=== PATIENT | female | born 1960 | race Caucasian/White ===

== ENCOUNTER 2021-02-28 16:18 | Outpatient (REF) | payer BC, SELFPAY ==
--- NOTE | ~2021-02-28 | XR_ITS ---
EXAMINATION: XR KNEE, LEFT CLINICAL INFORMATION: Left knee pain COMPARISON: None TECHNIQUE: Four views of the left knee. FINDINGS: There is no evidence of acute fracture or dislocation of the left knee. No significant knee effusion is seen. There is mild narrowing of the medial joint space compartment. Patella spurs at insertion of the quadriceps tendon is noted. XR/XR knee LT 4V IMPRESSION: There is no evidence of acute fracture, dislocation, or effusion of the left knee. Mild medial joint space degenerative narrowing.
== END 2021-02-28 16:19 | disposition home or self-care (01) ==
LOC: HO.HMGCX 16:18
PROVIDERS: PCP Internal Medicine; Visit Provider Physician Assistant Medical
DX: M25.562 Pain in left knee (principal)
CPT/HCPCS: 73564

== ENCOUNTER 2021-03-04 08:59 | Outpatient (REF) | payer BC, SELFPAY ==
--- NOTE | ~2021-03-04 | US_ITS ---
EXAMINATION: US VENOUS ULTRASOUND WITH DOPPLER LOWER EXTREMITY, LEFT CLINICAL INFORMATION: Left knee pain. COMPARISON: None TECHNIQUE: Ultrasound of the deep veins is performed from the hip to the calf with compression sonography and color and pulse Doppler assessment. Spectral analysis with color-flow imaging is performed. FINDINGS: There is normal venous compression and respiratory variation and augmented flow. The visualized common femoral vein, superficial femoral vein, profunda femoral vein, popliteal vein, and the trifurcation region shows no evidence of deep venous thrombosis. And anechoic fluid collection medial to the left knee measures approximately 5.1 x 1.5 x 4.6 cm. Doppler showed no associated vascular flow. If the patient's symptoms persist, followup ultrasound in 5 days 7 days might be of value to exclude proximal propagation from a non-visualized calf vein. US/US venous duplex LE LT IMPRESSION: 1. No evidence for deep venous thrombosis in the visualized veins of the left lower extremity. 2. Left medial popliteal cyst.
== END 2021-03-04 09:00 | disposition home or self-care (01) ==
LOC: HO.HMGCX 08:59
PROVIDERS: Visit Provider Physician Assistant Medical
DX: M25.562 Pain in left knee (principal)
CPT/HCPCS: 93971

== ENCOUNTER 2021-04-02 07:29 | Outpatient (REF) | payer BC, SELFPAY ==
--- NOTE | ~2021-04-02 | XR_ITS ---
EXAMINATION: X-RAY KNEE, LEFT CLINICAL INFORMATION: Left knee pain COMPARISON: Radiographs of the left knee 02/28/2021 TECHNIQUE: Single sunrise view of the left knee FINDINGS: There is mild patellofemoral joint space narrowing with osteophyte formation at the medial compartment. No acute fracture or dislocation. Overlying soft tissues are intact. XR/XR knee LT 1V IMPRESSION: Mild degenerative changes of the patellofemoral joint, on this single sunrise view of the left knee.
== END 2021-04-02 07:30 | disposition home or self-care (01) ==
LOC: HO.HOSX 07:29
PROVIDERS: Visit Provider Physician Assistant
DX: M17.12 Unilateral primary osteoarthritis, left knee (principal)
CPT/HCPCS: 20610; 73560; J1040